=== PATIENT | female | born 1940 | race Caucasian/White ===

== ENCOUNTER 2017-04-22 15:36 | Emergency (ER) | payer MEDICARE, OTHER ==
[2017-04-22 16:43] LABS: BASOPHILS 0.4 % (0-2); EOSINOPHILS 2.9 % (0-7); HEMATOCRIT 35.6 % (36.0-48.0); HEMOGLOBIN 11.5 g/dL (12-16); IMMATURE GRANULOCYTES 0.2 % (0-5); LYMPHOCYTES 26.2 % (15-50); MCH 29.5 pg (26.0-34.0); MCHC 32.3 g/dL (31.0-37.0); MCV 91.3 fL (80.0-100.0); MEAN PLATELET VOLUME 9.8 fL (7.4-10.4); MONOCYTES 7.2 % (2-11); NEUTROPHILS 63.1 % (40-80); PLATELET COUNT 205 10x3/uL (130-400); WBC 5.1 10x3/uL (4.8-10.8)
[2017-04-22 16:58] LABS: INR 0.98 (0.85-1.17); PROTIME 12.8 SECONDS (11.6-15.0)
[2017-04-22 17:04] LABS: ALBUMIN 3.5 g/dL (3.4-5.0); ANION GAP 11.1 mmol/L (8-16); BILIRUBIN - TOTAL 0.54 mg/dL (0.2-1.3); CALCIUM 8.1 mg/dL (8.5-10.1); CARBON DIOXIDE 27.8 mmol/L (21.0-32.0); CREATININE - SERUM 1.1 mg/dL (0.6-1.3); MAGNESIUM - SERUM 2.1 mg/dL (1.8-2.4); POTASSIUM - SERUM 3.9 mmol/L (3.5-5.1); PROTEIN - SERUM 6.4 g/dL (6.4-8.2)
== END 2017-04-22 17:54 | disposition home or self-care (01) ==
LOC: D.ER 15:36
PROVIDERS: Emergency Medicine
DX: R04.2 Hemoptysis (principal); R04.0 Epistaxis; K21.9 Gastro-esophageal reflux disease without esophagitis